=== PATIENT | female | born 1980 | race Caucasian/White ===

== ENCOUNTER 2018-12-02 11:22 | Emergency (ER) | payer SELFPAY ==
[2018-12-02 11:34] VITALS: O2SAT 98
--- NOTE | 2018-12-02 11:37 | ED.PDOC ---
History of Present Illness - General Chief Complaint: ENT Problem Stated Complaint: cannot hear from left ear Time Seen by Provider: 12/02/18 11:23 Source: patient - History of Present Illness Initial Comments: LEFT EAR DISCOMFORT, ONSET AT 5 AM. SHE SAYS THAT IT FEELS IF THERE IS WATER ON THE EAR. DENIES FEVER OR SORE THROAT. SHE ALSO C/O A THREE DAY HX OF NASAL CONGESTION AND A PRODUCTIVE COUGH. Timing/Duration: abrupt EENT Location: ear (L) Prearrival Treatment: no prearrival treatment Worsening Factors: nothing Associated Symptoms: cough Allergies/Adverse Reactions: Allergies NO KNOWN ALLERGY Allergy (Unverified 02/11/13 11:27) Home Medications: Ambulatory Orders Azithromycin [Zithromax Z-Bharath] 250 mg PO DAILY #7 tab 12/02/18 Scott/Poly/Hc Otic Susp [Cortisporin Otic Susp] 10 ml OTIC Q6HRS #1 bttl 12/02/18 Review of Systems - Review of Systems Constitutional: States: no symptoms reported EENTM: States: ear discharge, nose congestion Respiratory: States: cough Gastrointestinal/Abdominal: States: no symptoms reported Genitourinary: States: no symptoms reported Musculoskeletal: States: no symptoms reported Skin: States: no symptoms reported Neurological: States: no symptoms reported Past Medical History (General) - Patient Medical History Hx Stroke: No Hx Congestive Heart Failure: No Hx Diabetes: No Surgical History: cholecystectomy - Vaccination History Hx Influenza Vaccination: No - Social History Hx Tobacco Use: Yes - Female History Patient is a Female of Child Bearing Age (10 -59 yrs old): Yes Family Medical History - Family History Mother Family History: Unknown Living Status: Unknown Physical Exam - Physical Exam General Appearance: Alert, Well Developed, Well Groomed, Well Nourished Eye Exam: bilateral normal Ear Exam: left ear: TM red, erythema, other - BLOOD NOTED-DENIES TRAUMATIC INJURY Nasal Exam: normal inspection, active bleeding Throat Exam: pharynx normal Neck: non-tender, full range of motion, supple Cardiovascular/Respiratory: regular rate, rhythm, no M/R/G Abdominal Exam: non-tender, no organomegaly Departure - Departure Clinical Impression: Otitis media Qualifiers: Otitis media type: serous Chronicity: acute Laterality: left Recurrence: not specified as recurrent Qualified Code(s): H65.02 - Acute serous otitis media, left ear Time of Disposition: 11:39 Disposition: Discharge to Home or Self Care Departure Forms: ED Discharge - Pt. Copy, Patient Portal Self Enrollment Diet: resume usual diet Prescriptions: Scott/Poly/Hc Otic Susp [Cortisporin Otic Susp] 10 ml OTIC Q6HRS #1 bttl Azithromycin [Zithromax Z-Bharath] 250 mg PO DAILY #7 tab Home Medications: Ambulatory Orders Azithromycin [Zithromax Z-Bharath] 250 mg PO DAILY #7 tab 12/02/18 Scott/Poly/Hc Otic Susp [Cortisporin Otic Susp] 10 ml OTIC Q6HRS #1 bttl 12/02/18 Comments: DIFFERENTIAL DIAGNOSIS: TRAUMATIC INJURY TO THE LEFT TYMPANIC MEMBRANE
[2018-12-02 11:51] VITALS: BP 110/78; TEMP 97.5
== END 2018-12-02 11:50 | disposition home or self-care (01) ==
LOC: ER 11:22
DX: H65.02 Acute serous otitis media, left ear (principal); Z87.891 Personal history of nicotine dependence

== ENCOUNTER → 2018-12-25 | Outpatient (CLI) | payer BC ==
--- NOTE | 2018-12-25 15:22 | RAD ---
EXAM DESCRIPTION: Cervical Spine,3 Views CLINICAL HISTORY: 38 years Female, RADICULOPATHY COMPARISON: None. FINDINGS: 3 views of the cervical spine show vertebral body heights and intervertebral disc spaces to be maintained. Mild reversal the normal cervical lordosis is seen with no abnormal increase in prevertebral soft tissues. C1-2 relationship is maintained. IMPRESSION: Mild reversal of the normal cervical lordosis could be secondary to patient positioning or muscle spasm. Otherwise unremarkable cervical spine series. Electronically signed by: Ángel Gu MD 12/25/2018 3:21 PM [facility]
== END ==
LOC: RAD 12:23
PROVIDERS: ATTEND Nurse Practitioner Family
DX: M54.12 Radiculopathy, cervical region (principal)

== ENCOUNTER → 2019-05-13 | Outpatient (CLI) | payer OTHER ==
--- NOTE | 2019-05-13 12:36 | MRI ---
EXAM DESCRIPTION: Lumbar Spine w/o Contrast : Magnetic Resonance Imaging. CLINICAL HISTORY: Low back pain COMPARISON: Lumbar radiographs 03/18/2019. TECHNIQUE: Multiplanar, multiple standard sequences, non contrast MRI, lumbar spine. FINDINGS: L5-S1: The disc space is fully visualized on axial T2 series #501, image 3. Normal signal in the disc with disc space preserved. Small posterior midline bulge abutting the thecal sac. Posterior elements unremarkable. Mild canal narrowing. Moderate right foraminal narrowing and mild left foraminal narrowing. L4-L5: Desiccation the disc and mild disc space loss. Posterior broad-based bulge with hyperintense T2 annular fissure in the midline. AP canal diameter 10 mm. Early arthrosis right facet. Minimal flavum ligament thickening. Bilateral foramina are patent. L3-L4: Normal signal in the disc and disc space preserved. Minimal posterior ligament thickening. Facets negative. Mild canal narrowing. Bilateral foramina are patent. L2-L3: Normal signal in the disc and disc space preserved. Posterior elements unremarkable. Canal and foramina are patent. L1-L2: Normal signal in the disc and disc space preserved. Posterior elements unremarkable. Canal and foramina are patent. T12-L1: Normal signal in the disc and disc space preserved. Posterior elements unremarkable. Canal and foramina are patent. Conus terminates at this level. Normal signal in the included distal cord and conus. No scoliosis. Paravertebral soft tissues are unremarkable. Normal marrow signal in the remaining vertebral bodies and the posterior elements. Vertebral bodies are not compressed at any level. IMPRESSION: 1. Normal signal in the L5-S1 disc with posterior small midline bulge and mild canal narrowing. Moderate right foraminal narrowing. 2. Desiccated L4-L5 disc and disc space loss. Posterior midline annular fissure. Borderline mild central canal stenosis. Bilateral foramina are patent. Electronically signed by: Rod Rodriguez MD 05/13/2019 12:34 PM CDT
== END ==
LOC: MRI 09:27
PROVIDERS: ATTEND Nurse Practitioner Family
DX: M51.36 Other intervertebral disc degeneration, lumbar region (principal); M51.87 Other intervertebral disc disorders, lumbosacral region